=== PATIENT | female | born 1955 | race Caucasian/White ===

== ENCOUNTER → 2020-11-01 | Outpatient (CLI) | payer BC ==
--- NOTE | 2020-11-01 18:07 | Diagnostic Imaging Report ---
PROCEDURE: MRI right lower extremity without contrast. TECHNIQUE: Multiplanar, multisequence non contrast-enhanced MRI of the right lower extremity was accomplished. INDICATION: Ulceration at the right 3rd toe COMPARISON: None FINDINGS: There is bone marrow edema in the distal phalanx of the right 3rd toe with erosion and T1-weighted marrow replacement, consistent with osteomyelitis. There is surrounding soft tissue edema. No drainable fluid collection is seen on this noncontrast exam. No acute fracture is seen in the imaged right foot. There are severe degenerative changes at the MTP joint and IP joint of the great toe with mild dorsal subluxation at the IP joint. Subcortical cystlike changes are seen at the 1st metatarsal head. There is extensive atrophy throughout the musculature of the right foot. The flexor and extensor tendons appear to be intact. IMPRESSION: 1. Findings of osteomyelitis of the right 3rd toe distal phalanx. 2. Advanced degenerative changes in the right great toe with mild subluxation at the interphalangeal joint. Dictated by: Dictated on workstation # [id number]
== END ==
LOC: RAD 16:19
PROVIDERS: ATTEND Podiatrist Foot & Ankle Surgery
DX: M19.071 Primary osteoarthritis, right ankle and foot (principal); M86.8X7 Other osteomyelitis, ankle and foot

== ENCOUNTER 2020-11-11 05:39 | Outpatient (RCR) | payer BC ==
[~2020-11-11] VITALS: Ht 157.5 cm; Wt 115.0 kg
[2020-11-11] MEDS ORDERED: ACHYD1T PO (14:22)
[2020-11-11] MEDS ORDERED: ALPR1TAB2 PO (14:22)
== END 2020-11-11 14:26 | disposition home or self-care (01) ==
LOC: PREOP 05:39 → EDSTATUS 13:30 → PREOP 14:26
PROVIDERS: ATTEND Podiatrist Foot & Ankle Surgery
DX: Z01.818 Encounter for other preprocedural examination (principal)

== ENCOUNTER 2020-11-18 12:03 | Day surgery (SDC) | payer BC ==
[2020-11-18] VITALS (9 sets, daily range): BP systolic 127–156; BP diastolic 70–96
[~2020-11-18] VITALS: Ht 157.5 cm; Wt 115.0 kg
[~2020-11-18 12:03] MED LIST: ACHYD1T PO; ALPR1TAB2 PO
[2020-11-18] MEDS ORDERED: LACTATED RINGERS 1,000 ML IV PRN (12:15)
[2020-11-18] MEDS ORDERED: ceFAZolin INJECTION 1,000 MG in WATER (STERILE) FOR INJECTION 10 ML IV ONE (12:15)
[2020-11-18] MEDS ORDERED: BUPIVACAINE 0.5% 30 ML (SENSORCAINE) VIAL ONE (12:33)
[2020-11-18] MEDS ORDERED: LIDOCAINE 1% INJ 20 ML 20 ML VIAL ONE (12:33)
[2020-11-18] MEDS ORDERED: MIDAZOLAM 2 MG/2 ML (VERSED) VIAL ONE (12:52)
[2020-11-18] MEDS ORDERED: PROPOFOL INJECTION 50 ML IV ONE ×2 (12:52→14:15)
[2020-11-18] MEDS ORDERED: GABA800T10 PO (13:18)
[2020-11-18] MEDS ORDERED: HYDR12.56 PO (13:18)
[2020-11-18] MEDS ORDERED: ROPI1TAB PO (13:18)
[2020-11-18] MEDS ORDERED: LETR2.5T6 PO (13:18)
[2020-11-18] MEDS ORDERED: CHOL2400 MC (13:18)
[2020-11-18] MEDS ORDERED: [UNRECOGNIZED DRUG - OTHER] PO (13:18)
[2020-11-18] MEDS ORDERED: LACT1CAP64 PO (13:18)
[2020-11-18] MEDS ORDERED: MAGN500C15 PO (13:18)
--- NOTE | 2020-11-18 13:35 | Progress Note-Pre Operative ---
Pre-Operative Progress Note H&P Reviewed The H&P was reviewed, patient examined and no changes noted. Date Seen by Provider: November 18, 2020 Time Seen by Provider: 13:35 Date H&P Reviewed: November 18, 2020 Time H&P Reviewed: 13:35 Pre-Operative Diagnosis: Osteomyelitis, right 3rd toe MORIAH MORROW DPM November 18, 2020 13:35
[2020-11-18] MEDS ORDERED: proPOfol 200 MG/20 ML (DIPRIVAN) VIAL IV ONE (14:15)
[2020-11-18] MEDS ORDERED: ONDANSETRON 4 MG/2 ML (SDV) Z0FRAN ONE (14:22)
[2020-11-18] MEDS ORDERED: SEVOFLURANE (ULTANE) 15 ML INHAL SOLN ONE (14:23)
--- NOTE | 2020-11-18 14:33 | Progress Note-Post Operative ---
Post-Operative Progess Note Surgeon (s)/Restaurant Floor Manager (s) Surgeon MORIAH MORROW DPM Restaurant Floor Manager: none Pre-Operative Diagnosis Osteomyelitis, right 3rd toe Post-Operative Diagnosis same Procedure & Operative Findings Date of Procedure 11/18/20 Procedure Performed/Findings Partial amputation of the right 3rd toe Anesthesia Type General Estimated Blood Loss Estimated blood loss (mL): Minimal Specimens/Packing Specimens Removed Right 3rd toe, distal and middle phalanx MORIAH MORROW DPM November 18, 2020 14:33
[2020-11-18] MEDS ORDERED: CEPH500C PO (14:39)
[2020-11-18] MEDS ORDERED: ACHD5005 PO (14:39)
--- NOTE | 2020-11-18 14:44 | Anesthesia-General Post-Op ---
General Patient Condition Mental Status/LOC: Same as Preop Cardiovascular: Satisfactory Nausea/Vomiting: Absent Respiratory: Satisfactory Pain: Controlled Complications: Absent Post Op Complications Complications None Follow Up Care/Instructions Patient Instructions None needed. Anesthesia/Patient Condition Patient Condition Patient is doing well, no complaints, stable vital signs, no apparent adverse anesthesia problems. No complications reported per nursing. NATTY GONSALES CRNA November 18, 2020 14:44
[2020-11-18] MEDS ORDERED: HYDROmorphone 2 MG/ML VIAL (DILAUDID) IV ONE (14:45)
[2020-11-18] MEDS ORDERED: HYDROcodone/APAP 5 MG/325 MG (LORTAB) TAB PO PRN (14:45)
[2020-11-18] MEDS ORDERED: LACTATED RINGERS 1,000 ML IV SCH (14:45)
[2020-11-18] MEDS ORDERED: ONDANSETRON 4 MG/2 ML (SDV) Z0FRAN IVP PRN (14:45)
[2020-11-18] MEDS ORDERED: MEPERIDINE (DEMEROL) INJ 50 MG/ML IVP ONE (14:45)
[2020-11-18] MEDS ORDERED: morphine INJ 10 MG/ML 1ML (SYR OR VIAL) IVP ONE (14:45)
--- NOTE | 2020-11-18 15:44 | Physical Therapy Ortho Eval ---
PT Orthopedic Evaluation Type of Surgery right side 3rd toe partial amputation, osteomyelitis Prior Level of Function Current Living Status: Spouse Locomotion (Upon Admit): Independent Established Durable Medical Eq: Front Wheeled Walker Subjective Subjective Patient in bed pre tx, agrees to PT, has no complaints of pain, patient has her own surgical shoe. Patient is aware of partial weight bearing on right foot, and is compliant with it. Entry Into Home: Ramp Motor Control Motor Control: Motor Control WNL Transfer SCALE: Activities may be completed with or without assistive devices. 3-Oociyxhqai-mptjlql completes the activity by him/herself with no assistance from a helper. 5-Set-up or Clean-up Assistance-helper sets up or cleans up; patient completes activity. [place] assists only prior to or following the activity. 4-Supervision or Touching Assistance-helper provides verbal cues and/or touch ing/steadying and/or contact guard assistance as patient completes activity. Assistance may be provided throughout the activity or intermittently. 3-Partial/Moderate Assistance-helper does LESS THAN HALF the effort. [place] lifts, holds or supports trunk or limbs, but provides less than half the effort. 2-Substantial/Maximal Assistance-helper does MORE THAN HALF the effort. [place] lifts or holds trunk or limbs and provides more than half the effort. 6-Tdaddwiov-zhsepx does ALL the effort. Patient does none of the effort to complete the activity. Or, the assistance of 2 or more helpers is required for the patient to complete the activity. If activity was not attempted, code reason: 7-Patient Refused. 9-Not Applicable-not attempted and the patient did not perform the activity before the current illness, exacerbation or injury. 10-Not Attempted due to Environmental Limitations-(lack of equipment, weather restraints, etc.). 88-Not Attempted due to Medical Conditions or Safety Concerns. Transfers (B, C, W/C) (QC): 4 Gait Gait Assistive Device: FWW Right Lower Extremity: Right Weight Bearing Status RLE: Partial Weight Bearing Left Lower Extremity: Left Weight Bearing Status LLE: Full Weight Bearing Gait (QC): 4 Summary/Comments Patient ambulated 150' with a rolling walker with SBA, gait was slow but steady, she was compliant with PWB of right foot, patient also went up and down 1 step using a rolling walker with CGA and cues for foot placement Treatment Rendered Treatment: Therapeutic Exercises, Gait Train, Step Train Exercise Instruction: Ankle Pumps Assessment/Goals Goal Time Frame: 1 Visit Understands HEP: Yes Safe Ambulation: Yes Plan Treatment Plan: Discharge PT/Family Agrees to Plan: Yes Time Time In: 1519 Time Out: 153 Total Billed Treatment Time: 14 Billed Treatment Time 1 visit EVL 14' RUTH MORENO PT November 18, 2020 15:44
--- NOTE | 2020-11-18 18:30 | Diagnostic Imaging Report ---
INDICATION: Osteomyelitis of the right 3rd toe. Three views of the right foot show amputation of the distal aspect of the distal phalanx of the 3rd toe. IMPRESSION: Postsurgical changes from osteotomy of the distal phalanx of the right 3rd toe. Dictated by: Dictated on workstation # [id number]
--- NOTE | 2020-11-19 00:26 | OPERATIVE REPORT ---
DATE OF SERVICE: 11/18/2020 SURGEON: Becca Morrow DPM. PREOPERATIVE DIAGNOSIS: Osteomyelitis, right third toe. POSTOPERATIVE DIAGNOSIS: Osteomyelitis, right third toe. PROCEDURE: Partial amputation of the right third toe. WOUND CLASS: Contaminated. ANESTHESIA: General. HEMOSTASIS: Pneumatic ankle tourniquet at 250 mmHg. INDICATIONS: This 65-year-old female presents with a chronic wound to the distal tip of the right third toe. X-rays and further evaluation indicated osteomyelitis of the digit. Conservative and surgical options were discussed with the patient. The patient is agreeable to surgical intervention after risks and complications were discussed at length. No guarantees were extended to the patient and she is willing to proceed. DESCRIPTION OF PROCEDURE: The patient was brought back to the operating table, placed in secure supine position. Appropriate timeout was performed. A local anesthetic was induced utilizing 10 mL of 0.5% Marcaine and 2% Xylocaine in a 50:50 mix to the third ray, right foot. The patient continued to move, and so additional 3 mL of 0.5% Marcaine was utilized for a digital block, right third toe. She continued to move and so she was transitioned from local to a general anesthetic. The right foot was prepped and draped in the normal sterile manner. The right foot was elevated, allowed to exsanguinate after which the tourniquet was inflated to 250 mmHg. Attention was then directed to the right third toe where an incision was created overlying the middle phalanx from the most medial and lateral aspect connecting over the dorsal aspect of the middle phalanx. Next, an incision was created from the medial aspect of the middle phalanx extending distally and plantarly creating a plantar flap that was then finished with a starting point of the lateral middle phalanx extending distally to the plantar flap. Next, a power sagittal saw was utilized to cut the middle phalanx, mid diaphysis. The distal middle phalanx was sent for gross and microscopic evaluation, which should be the clean portion of the pathology. The distal phalanx expected to be the contaminated portion of the pathology and this was sent as a separate specimen. Also, a small portion of the distal phalanx was rongeured and sent for cultures and sensitivities. Attention was redirected to the remainder of the right third digit where the extensor and flexor tendons were cut as proximally as possible. The area was inspected and found to be without any further pathology. Power irrigation was then performed with normal saline with 1000 mL, after which a swab culture was taken. Closure was then performed with 4-0 Prolene in a simple interrupted type stitch. The tourniquet was released and noted appropriate cap refill time to all digits of the right foot. A postoperative dressing consisted of Betadine soaked Adaptic, sterile 4 x 4, sterile Kerlix all secured with Coban wrap. It should be noted that a swab culture was taken prior to closure and after the power irrigation was performed. Postoperative instructions were given to the patient for minimal weightbearing and heel contact only on the right. We will see her back in the office in 10 days' period of time or sooner if necessary. She was given a prescription for hydrocodone as well as cephalexin. We will see her back in the 10 days or sooner if necessary. Job ID: [id number] DocumentID: [id number] Dictated Date: 11/18/2020 14:46:22 Administrative Secretary Date: 11/19/2020 00:25:39 Dictated By: BECCA MORROW DPM
== END 2020-11-18 15:55 | disposition home or self-care (01) ==
LOC: SDC 12:03
PROVIDERS: ATTEND Podiatrist Foot & Ankle Surgery
DX: M86.9 Osteomyelitis, unspecified (principal); M06.9 Rheumatoid arthritis, unspecified; G89.29 Other chronic pain; F41.9 Anxiety disorder, unspecified; Z79.899 Other long term (current) drug therapy; Z85.3 Personal history of malignant neoplasm of breast
CPT/HCPCS: 73620; 87070; 87075; 87077; 87081; 87186; 87205